=== PATIENT | male | born 1990 | race Caucasian/White ===

== ENCOUNTER → 2016-09-30 | Outpatient (CLI) | payer MEDICAID, SELFPAY | LOC: M OUTALCOH 11:01 | PROVIDERS: ATTEND Psychiatry & Neurology Psychiatry | DX: Z13.9 Encounter for screening, unspecified (principal); F12.20 Cannabis dependence, uncomplicated; F10.20 Alcohol dependence, uncomplicated ==

== ENCOUNTER → 2016-10-24 | Outpatient (RCR) | payer MEDICAID, SELFPAY | LOC: M OUTALCOH 10-09 11:25 | PROVIDERS: ATTEND Psychiatry & Neurology Psychiatry | DX: Z13.9 Encounter for screening, unspecified (principal); F12.20 Cannabis dependence, uncomplicated; F10.20 Alcohol dependence, uncomplicated; F17.200 Nicotine dependence, unspecified, uncomplicated ==

== ENCOUNTER 2016-11-20 14:00 | Outpatient (RCR) | payer SELFPAY | END 2016-11-23 | LOC: M OUTALCOH 14:00 | PROVIDERS: ATTEND Psychiatry & Neurology Psychiatry | DX: F12.20 Cannabis dependence, uncomplicated (principal); F10.20 Alcohol dependence, uncomplicated; F17.200 Nicotine dependence, unspecified, uncomplicated ==

== ENCOUNTER → 2016-12-24 | Outpatient (RCR) | payer OTHER, SELFPAY | LOC: M OUTALCOH 11-25 09:00 | PROVIDERS: ATTEND Psychiatry & Neurology Psychiatry | DX: Z13.9 Encounter for screening, unspecified (principal); F12.20 Cannabis dependence, uncomplicated; F10.20 Alcohol dependence, uncomplicated; F17.200 Nicotine dependence, unspecified, uncomplicated ==

== ENCOUNTER → 2017-01-23 | Outpatient (RCR) | payer OTHER | LOC: M OUTALCOH 12-26 10:35 | PROVIDERS: ATTEND Psychiatry & Neurology Psychiatry | DX: Z13.9 Encounter for screening, unspecified (principal); F10.20 Alcohol dependence, uncomplicated; F12.20 Cannabis dependence, uncomplicated; F17.200 Nicotine dependence, unspecified, uncomplicated ==

== ENCOUNTER 2017-02-20 13:00 | Outpatient (RCR) | payer OTHER | END 2017-02-23 | LOC: M OUTALCOH 13:00 | PROVIDERS: ATTEND Psychiatry & Neurology Psychiatry | DX: Z13.9 Encounter for screening, unspecified (principal); F12.20 Cannabis dependence, uncomplicated; F10.20 Alcohol dependence, uncomplicated; F17.200 Nicotine dependence, unspecified, uncomplicated ==

== ENCOUNTER 2017-03-25 15:00 | Outpatient (RCR) | payer OTHER | END 2017-03-26 | LOC: M OUTALCOH 15:00 | PROVIDERS: ATTEND Psychiatry & Neurology Psychiatry | DX: Z13.9 Encounter for screening, unspecified (principal); F12.20 Cannabis dependence, uncomplicated; F10.20 Alcohol dependence, uncomplicated; F17.200 Nicotine dependence, unspecified, uncomplicated ==

== ENCOUNTER 2017-04-23 16:00 | Outpatient (RCR) | payer OTHER | END 2017-04-25 | LOC: M OUTALCOH 16:00 | PROVIDERS: ATTEND Psychiatry & Neurology Psychiatry | DX: F12.20 Cannabis dependence, uncomplicated (principal); F10.20 Alcohol dependence, uncomplicated; F17.200 Nicotine dependence, unspecified, uncomplicated ==

== ENCOUNTER → 2017-08-31 | Outpatient (CLI) | payer OTHER ==
[2017-08-31 08:32] LABS: BASO % 0.5 % (0.0-1.0); EOS # 0.3 10^3/uL (0.0-0.50); EOS % 4.1 % (0.0-3.0); HEMATOCRIT 46.6 % (42.0-52.0); HEMOGLOBIN 15.6 g/dl (14.0-18.0); IMMATURE GRANULOCYTE % 0.3 % (0-0); LYMPH # 2.1 10^3/uL (1.5-6.5); LYMPH % 32.1 % (24.0-44.0); MEAN CORPUSCULAR HGB CONC 33.5 g/dl (32.0-36.5); MEAN CORPUSCULAR VOLUME 92.6 fl (80.0-96.0); MONO # 0.5 10^3/uL (0.0-0.8); MONO % 8.3 % (0.0-5.0); NEUTROPHILS # 3.6 10^3/uL (1.8-7.7); NEUTROPHILS % 54.7 % (36.0-66.0); PLATELET COUNT, AUTOMATED 292 10^3/uL (150-450); RED BLOOD COUNT 5.03 10^6/uL (4.30-6.10); RED CELL DISTRIBUTION WIDTH 12.3 % (11.5-14.5); WHITE BLOOD COUNT 6.5 10^3/uL (4.0-10.0)
[2017-08-31 09:38] LABS: APPEARANCE, URINE HAZY (CLEAR); BACTERIA, URINE AUTO NEGATIVE (NEGATIVE); BILIRUBIN, URINE AUTO NEGATIVE (NEGATIVE); BLOOD, URINE BLOOD NEGATIVE (NEGATIVE); COLOR, URINE YELLOW (YELLOW); GLUCOSE, URINE (UA) AUTO NEGATIVE (NEGATIVE); KETONE, URINE AUTO NEGATIVE (NEGATIVE); LEUKOCYTE ESTERASE, URINE AUTO TRACE (NEGATIVE); MUCUS, URINE SMALL (NEGATIVE); NITRITE, URINE AUTO NEGATIVE (NEGATIVE); PROTEIN, URINE AUTO NEGATIVE (NEGATIVE); RBC, URINE AUTO 5 /HPF (0-3); SPECIFIC GRAVITY URINE AUTO 1.026 (1.002-1.035); SQUAMOUS EPITHELIAL CELL UR AU 0 /HPF (0-6); UROBILINOGEN, URINE AUTO 0.2 mg/dL (0.0-2.0); WBC, URINE AUTO 10 /HPF (0-3)
[2017-08-31 10:07] LABS: ALBUMIN/GLOBULIN RATIO 1.29 (1.00-1.93); ALKALINE PHOSPHATASE 121 U/L (45-117); ALT/SGPT 39 U/L (12-78); ANION GAP 7 MEQ/L (8-16); AST/SGOT 23 U/L (7-37); BILIRUBIN,TOTAL 0.6 MG/DL (0.2-1.0); BLOOD UREA NITROGEN 14 MG/DL (7-18); CALCIUM LEVEL 8.5 MG/DL (8.5-10.1); CARBON DIOXIDE LEVEL 28 MEQ/L (21-32); CHLORIDE LEVEL 107 MEQ/L (98-107); CREATININE FOR GFR 0.96 MG/DL (0.70-1.30); GLOMERULAR FILTRATION RATE > 60.0 (>60); GLUCOSE, FASTING 81 MG/DL (70-100); POTASSIUM SERUM 4.3 MEQ/L (3.5-5.1); SODIUM LEVEL 142 MEQ/L (136-145); TOTAL PROTEIN 7.1 GM/DL (6.4-8.2)
[2017-08-31 10:56] LABS: HEPATITIS B SURFACE ANTIGEN NEGATIVE (NEGATIVE)
[2017-08-31 11:23] LABS: HEPATITIS B CORE ANTIBODY IGM NEGATIVE (NEGATIVE); HEPATITIS C VIRUS ABY INDEX 0.1 INDEX (<0.8)
[2017-08-31 11:25] LABS: HEPATITIS A ANTIBODY IGM NEGATIVE (NEGATIVE)
== END ==
LOC: M LAB 07:44
DX: R20.2 Paresthesia of skin (principal); Z79.891 Long term (current) use of opiate analgesic; F10.21 Alcohol dependence, in remission
CPT/HCPCS: 80053

== ENCOUNTER 2017-10-31 10:43 | Emergency (ER) | payer OTHER | END 2017-10-31 11:16 | disposition home or self-care (01) | LOC: M ED 10:43 | DX: K02.9 Dental caries, unspecified (principal); K04.7 Periapical abscess without sinus | CPT/HCPCS: 99282 ==

== ENCOUNTER → 2019-04-01 | Outpatient (CLI) | payer SELFPAY ==
[~2019-04-01] MED LIST: AUGM875T28 PO; HYDR-3715 PO; IBUP-1022 PO
== END ==
LOC: M OUTALCOH 08:00
PROVIDERS: ATTEND Psychiatry & Neurology Psychiatry
DX: Z13.39 Encounter for screening examination for other mental health and behavioral disorders (principal)